=== PATIENT | female | born 1955 | race Native Hawaiian/Other Pacific Islander ===

== ENCOUNTER 2018-11-24 06:15 | Outpatient (CLI) | payer BC ==
[2018-11-24] MEDS ORDERED: ARMOUR THYROID60 MG PO (07:21)
[2018-11-24] MEDS ORDERED: CETI10TA PO (07:21)
[2018-11-24] MEDS ORDERED: CLONAZEP ODT1 MG PO (07:22)
[2018-11-24] MEDS ORDERED: BENICAR HCT1 TA1 PO (07:22)
[2018-11-24] MEDS ORDERED: LINZESS145 MCG PO (07:23)
[2018-11-24] MEDS ORDERED: CRESTOR5 MG PO (07:23)
[2018-11-24] MEDS ORDERED: AMBIEN CR12.5 M1 PO (07:23)
[2018-11-24] MEDS ORDERED: [UNRECOGNIZED DRUG - CODE] PO (07:25)
== END 2018-11-24 06:19 | disposition short-term general hospital (02) ==
LOC: AMB 06:15
DX: R11.2 Nausea with vomiting, unspecified (principal); R53.1 Weakness
CPT/HCPCS: A0425; A0429

== ENCOUNTER 2018-11-24 06:28 | Emergency (ER) | payer BC ==
[~2018-11-24] VITALS: Ht 167.6 cm; Wt 78.0 kg
[2018-11-24 06:56] LABS: PLATELET COUNT 316 K/uL (152-353)
[2018-11-24 07:03] LABS: SODIUM 139 mmol/L (136-145)
[2018-11-24] MEDS ORDERED: ARMOUR THYROID60 MG PO (07:21)
[2018-11-24] MEDS ORDERED: CETI10TA PO (07:21)
[2018-11-24] MEDS ORDERED: CLONAZEP ODT1 MG PO (07:22)
[2018-11-24] MEDS ORDERED: BENICAR HCT1 TA1 PO (07:22)
[2018-11-24] MEDS ORDERED: CRESTOR5 MG PO (07:23)
[2018-11-24] MEDS ORDERED: LINZESS145 MCG PO (07:23)
[2018-11-24] MEDS ORDERED: AMBIEN CR12.5 M1 PO (07:23)
[2018-11-24] MEDS ORDERED: [UNRECOGNIZED DRUG - CODE] PO (07:25)
[2018-11-24 11:30] VITALS: BP 116/58; TEMP 97.8
== END 2018-11-24 11:30 | disposition home or self-care (01) ==
LOC: ED 06:28
PROVIDERS: Emergency Medicine
DX: R73.9 Hyperglycemia, unspecified (principal); E86.0 Dehydration; F41.9 Anxiety disorder, unspecified
CPT/HCPCS: 36415; 80053; 81000; 82550; 82553; 84484; 85027; 93005; 96361; 96374; 99284; J2405

== ENCOUNTER 2020-08-29 21:19 | Emergency (ER) | payer BC ==
[~2020-08-29] VITALS: Ht 165.1 cm; Wt 78.5 kg
[~2020-08-29 21:19] MED LIST: AMBIEN CR12.5 M1 PO; ARMOUR THYROID60 MG PO; BENICAR HCT1 TA1 PO; CETI10TA PO; CLONAZEP ODT1 MG PO; CRESTOR5 MG PO; LINZESS145 MCG PO; [UNRECOGNIZED DRUG - CODE] PO
[2020-08-29 23:15] VITALS: BP 130/71; TEMP 98.4
== END 2020-08-29 23:15 | disposition home or self-care (01) ==
LOC: ED 21:19
DX: J06.9 Acute upper respiratory infection, unspecified (principal); J40 Bronchitis, not specified as acute or chronic; Z20.828 Contact with and (suspected) exposure to other viral communicable diseases
CPT/HCPCS: 87502; 87635; 87651; 99283; U0003

== ENCOUNTER 2022-04-14 12:30 | Outpatient (CLI) | payer OTHER, MEDICARE | END 2022-04-14 19:12 | disposition home or self-care (01) | LOC: MRI 12:30 | PROVIDERS: ATTEND Internal Medicine | DX: H53.8 Other visual disturbances (principal); G44.309 Post-traumatic headache, unspecified, not intractable; W19.XXXA Unspecified fall, initial encounter; S00.83XA Contusion of other part of head, initial encounter | CPT/HCPCS: 36415; 82565; 84520; A9576 ==

== ENCOUNTER 2022-11-03 17:38 | Observation (INO) | payer OTHER, MEDICARE ==
[~2022-11-03] VITALS: Ht 167.6 cm; Wt 76.3 kg
[2022-11-03 17:38] VITALS: BP 143/83; TEMP 97.7
[2022-11-03 18:17] LABS: PLATELET COUNT 223 K/uL (152-353)
[2022-11-03 18:18] LABS: POTASSIUM 3.8 mmol/L (3.6-5.2)
[2022-11-03 18:37] LABS: PARTIAL THROMBOPLASTIN TIME 25.2 SECONDS (24.5-33.6)
[2022-11-03 19:50] VITALS: BP 139/76
[2022-11-03 20:30] VITALS: BP 130/82
[2022-11-03 21:00] VITALS: BP 135/84
[2022-11-03 21:30] VITALS: BP 148/86
[2022-11-04 01:22] VITALS: BP 157/89; TEMP 98.2; Ht 167.6 cm; Wt 76.3 kg
[2022-11-04 04:00] VITALS: BP 153/86; TEMP 97.9
[2022-11-04 05:04] LABS: PLATELET COUNT 193 K/uL (152-353)
[2022-11-04 05:28] LABS: POTASSIUM 3.5 mmol/L (3.6-5.2)
[2022-11-04 08:00] VITALS: BP 139/85; TEMP 97
== END 2022-11-04 10:40 | disposition home or self-care (01) ==
LOC: ED 17:38 → MED/SURG 23:15
PROVIDERS: ADMIT Emergency Medicine; ATTEND Internal Medicine
DX: T42.6X1A Poisoning by other antiepileptic and sedative-hypnotic drugs, accidental (unintentional), initial encounter (principal); T45.0X1A Poisoning by antiallergic and antiemetic drugs, accidental (unintentional), initial encounter; Y92.89 Other specified places as the place of occurrence of the external cause; I10 Essential (primary) hypertension; Z85.3 Personal history of malignant neoplasm of breast; K59.09 Other constipation; E03.8 Other specified hypothyroidism; E78.49 Other hyperlipidemia; R53.1 Weakness; F32.A Depression, unspecified; R41.0 Disorientation, unspecified; Z79.899 Other long term (current) drug therapy; Z51.81 Encounter for therapeutic drug level monitoring
CPT/HCPCS: 80053; 80143; 80179; 80307; 80320; 81002; 84443; 85027; 85610; 85730; 93005; 96360; 96361; 99220; 99284; G0378

== ENCOUNTER 2023-02-10 09:57 | Outpatient (CLI) | payer OTHER, MEDICARE ==
[~2023-02-10 09:57] MED LIST changes: +AMBIEN5 MG PO; +ASCO500T18 PO; +BIOTIN1 MG PO; +COZAAR25 MG PO; +FISH OIL1 C10 PO; +FLUOXETINE20 MG PO; +MONT10TA PO; +NEURONTIN 100M100 MG PO; +OMEPRAZOLE DR20 MG PO; +VITAMI11 PO; +VITAMIN B-121000 MC2 PO
== END 2023-02-10 19:06 | disposition home or self-care (01) ==
LOC: MRI 09:57
PROVIDERS: ATTEND Internal Medicine
DX: R41.82 Altered mental status, unspecified (principal); Z85.3 Personal history of malignant neoplasm of breast; Z08 Encounter for follow-up examination after completed treatment for malignant neoplasm
CPT/HCPCS: A9576